=== PATIENT | male | born 1945 | race African-American/Black ===

== ENCOUNTER 2021-01-08 16:33 | Emergency (ER) | payer OTHER ==
[~2021-01-08] VITALS: Ht 182.9 cm; Wt 100.7 kg
[2021-01-08] MEDS ORDERED: HYDROcodone-ACET 10/325MG TAB PO ONE (19:15)
[2021-01-08] MEDS ORDERED: ENOXAPARIN SOD 100 MG/1 ML SYRINGE SC ONE (19:15)
[2021-01-08 20:10] VITALS: BP 128/79
== END 2021-01-08 20:13 | disposition home or self-care (01) ==
LOC: ER 16:33
DX: I82.4Z2 Acute embolism and thrombosis of unspecified deep veins of left distal lower extremity (principal); I10 Essential (primary) hypertension; E78.5 Hyperlipidemia, unspecified
CPT/HCPCS: 93971; 96372; 99284; J1650